=== PATIENT | female | born 1990 | race Caucasian/White ===

== ENCOUNTER 2016-08-15 19:38 | Emergency (ER) | payer MEDICAID, OTHER ==
[~2016-08-15] VITALS: Ht 167.6 cm; Wt 78.0 kg
[2016-08-15 19:42] VITALS: Ht 167.6 cm; Wt 78.0 kg
[2016-08-15] MEDS ORDERED: ACYC400T2 PO (19:59)
[2016-08-15] MEDS ORDERED: ACYC800T57 PO (19:59)
[2016-08-15] MEDS ORDERED: ACYCLOVIR 400 MG TAB PO ONE (20:00)
[2016-08-15] MEDS ORDERED: ACET500C5 PO (20:16)
--- NOTE | 2016-08-15 20:32 | ERD ---
ER Documentation Chief Complaint Date/Time DATE: 08/15/16 TIME: 20:28 Chief Complaint states wants to be checked for std HPI Patient is a 25-year-old female who presents to the ED with ulcers on her genitals. She states that she has had herpes in the past and states that she might have herpes today. She is not taking any medication. She denies vaginal discharge. She is currently on her period. Denies fever or chills. She states that she is sexually active with her partner but does not use condoms. Denies abdominal pain, nausea, vomiting or diarrhea. She has no other complaints. ROS All systems reviewed and are negative except as per history of present illness. Medications Home Meds Active Scripts Acetaminophen* (Tylophen*) 500 Mg Capsule, 1 CAP PO Q6H Y for PAIN AND OR ELEVATED TEMP, #20 CAP Prov:REILLY HARLEY PA-C 08/15/16 Acyclovir* (Acyclovir*) 400 Mg Tablet, 400 MG PO TID for 7 Days, TAB Prov:REILLY HARLEY PA-C 08/15/16 Allergies Allergies: Coded Allergies: Penicillins (Verified Allergy, Unknown, rash, 08/15/16) ampicillin (Verified Allergy, Unknown, rash, 08/15/16) PMhx/Soc History of Surgery: Yes () Hx Miscellaneous Medical Probl: Yes (herpes) Hx Alcohol Use: Yes Hx Substance Use: Yes (marijuana) Hx Tobacco Use: Yes Smoking Status: Current every day smoker Physical Exam Vitals Vital Signs Date Time Temp Pulse Resp B/P Pulse Ox O2 Delivery O2 Flow Rate FiO2 08/15/16 19:42 97.7 79 20 122/70 100 Physical Exam GENERAL: Well-developed, well-nourished female. Appears in no acute distress. HEAD: Normocephalic, atraumatic. EYES: Pupils are equally reactive bilaterally. EOMs grossly intact. No conjunctival erythema. ENT: Moist mucous membranes. No uvula deviation. No kissing tonsils. No exudates. NECK: Supple. No lymphadenopathy or thyromegaly. No meningismus. negative kernig. negative brudinski. LUNG: Clear to auscultation bilaterally. No rhonchi, wheezing, rales or coarse breath sounds. HEART: Regular rate and rhythm. No murmurs, rubs or gallops. : Multiple vesicles around the inner vaginal labia. No surrounding erythema. SKIN: Normal color. Warm and dry. No rashes or lesions. Capillary refill < 2 seconds Results 24 hrs Current Medications Medications (Trade) Dose Ordered Sig/Gunjan Route PRN Reason Start Time Stop Time Status Last Admin Dose Admin Acyclovir (Zovirax) 400 mg ONCE ONCE PO 08/15/16 20:00 08/15/16 20:01 DC 08/15/16 20:16 Procedures/MDM ER COURSE: I kept the patient and/or family informed of laboratory and diagnostic imaging results throughout the emergency room course. Laboratory studies Urine sent for gonorrhea and chlamydia MEDICAL DECISION MAKING: This is a 25-year-old female who presents with lesions on her genital X 2 DAYS. Vital signs were reviewed. Patient is afebrile. Patient is not hypoxic. Patient is not toxic or ill-appearing. Patient's partner was in the room during questioning and examination. Patient did not want her partner to leave. I did have a acoustic sensor operator during the examination. Patient likely has herpes. Low suspicion for necrotizing fasciitis, SJS, toxic epidermal necrolysis, Kawasaki, erythema multiforme, gangrene, scarlet fever, meningococcemia, sepsis , anaphylaxis, sepsis, deep space infection, or foreign body. Her urine was sent for culture. I did let patient know that she will receive a phone call in 1 week regarding her results. Acyclovir 1 dose was given here in the ED. Patient tolerated well with no adverse reaction. DISCHARGE: At this time, patient is stable for discharge and outpatient management with no new complaints during the ER course. Patient was sent home with acyclovir and Tylenol for pain.. Patient will be discharged home with instructions to recheck for new or worsening symptoms such as fever, nausea, weakness, LOC and to follow up with primary care in the next 1-2 days. Patient was advised to return to the ER for any new or worsening symptoms. Plan was discussed and patient and/ or family understands and agrees. Home instructions were given. Departure Diagnosis: Primary Impression: Screening for STDs (sexually transmitted diseases) Additional Impression: Herpes Condition: Stable Patient Instructions: Herpes Additional Instructions: Call your primary care doctor TOMORROW for an appointment during the next 1-2 days.See the doctor sooner or return here if your condition worsens before your appointment time. REILLY HARLEY PA-C August 15, 2016 20:31
== END 2016-08-15 20:27 | disposition home or self-care (01) ==
LOC: FTE 19:38
DX: Z11.3 Encounter for screening for infections with a predominantly sexual mode of transmission (principal); B00.9 Herpesviral infection, unspecified; F17.210 Nicotine dependence, cigarettes, uncomplicated
CPT/HCPCS: 87591; Z7502; Z7610; 99283